=== PATIENT | female | born 2000 | race Caucasian/White ===

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

== ENCOUNTER 2018-05-29 15:57 | Emergency (ER) | payer BC ==
[2018-05-29 16:47] VITALS: BP 130/78
--- NOTE | 2018-05-29 17:06 | UC ---
Complaint Female HPI - HPI Summary HPI Summary: Patient states that she had unprotected sex this past Sunday. She states that she had been drinking at the time. She states that she may have accidentally left tampon in since then but she is not sure. She reports having a clear that she's smelling discharge and some low backache. She denies pelvic pain, fever and chills as well as nausea vomiting diarrhea and dysuria. She denies any prior history of STD. Patient does get annual routine pelvic exams. - History Of Current Complaint Chief Complaint: UCGU Stated Complaint: PERSONAL Time Seen by Provider: 05/29/18 16:45 Hx Obtained From: Patient Hx Last Menstrual Period: 05/25/18 Pain Intensity: 2 Aggravating Factor(s): Nothing Alleviating Factor(s): Nothing - Allergies/Home Medications Allergies/Adverse Reactions: Allergies Allergy/AdvReac Type Severity Reaction Status Date / Time No Known Allergies Allergy Verified 05/29/18 16:41 Home Medications: Home Medications Aviane Control Pill 1 tab PO DAILY 05/29/18 [History] PMH/Surg Hx/FS Hx/Imm Hx Previously Healthy: Yes - Surgical History Surgical History: None - Family History Known Family History: Positive: None Negative: Hypertension - Social History Occupation: Student Lives: Dormitory/Roommates Alcohol Use: Occasionally Substance Use Type: None Smoking Status (MU): Never Smoked Tobacco - Immunization History Vaccination Up to Date: Yes Review of Systems Constitutional: Negative Skin: Negative Eyes: Negative ENT: Negative Respiratory: Negative Cardiovascular: Negative Gastrointestinal: Negative Genitourinary: Vaginal/Penile Discharge Motor: Negative Neurovascular: Negative Musculoskeletal: Negative Neurological: Negative Psychological: Negative Is Patient Immunocompromised?: No All Other Systems Reviewed And Are Negative: Yes Physical Exam Triage Information Reviewed: Yes Appearance: Well-Appearing Vital Signs: Initial Vital Signs Temp 99.1 F 05/29/18 16:44 Pulse 86 05/29/18 16:44 Resp 16 05/29/18 16:44 BP 130/78 05/29/18 16:44 Pulse Ox 100 05/29/18 16:44 Eyes: Positive: Conjunctiva Clear ENT: Positive: Pharynx normal, TMs normal. Negative: Nasal congestion, Nasal drainage Neck: Positive: Supple, Nontender, No Lymphadenopathy Respiratory: Positive: Lungs clear, Normal breath sounds Cardiovascular: Positive: RRR, No Murmur Abdomen Description: Positive: Nontender, No Organomegaly, Soft. Negative: CVA Tenderness (R), CVA Tenderness (L), Distended, Guarding Bowel Sounds: Positive: Present Pelvic Exam: Positive: Other - External genitals without lesions or discharge. Patient does have a fishy odor. Upon inserting the speculum tampon is noted and removed easily. The os is closed and there is no discharge. Cultures were obtained. There was no cervical motion tenderness or adnexal or uterine tenderness on bimanual exam. Musculoskeletal: Positive: ROM Intact Neurological: Positive: Alert Psychological: Positive: Age Appropriate Behavior Skin Exam: Normal Diagnostics - Laboratory Diagnostic Studies Completed/Ordered: Pelvic cultures are pending Complaint Female Dx - Course Course Of Treatment: Given the physical exam, patient being treated presumptively for BV with Flagyl. No concern for TSS, PID or acute abdomen. - Differential Dx/Diagnosis Provider Diagnoses: Vaginal foreign body removed(tampon) Discharge - Sign-Out/Discharge Documenting (check all that apply): Patient Departure All imaging exams completed and their final reports reviewed: No Studies - Discharge Plan Condition: Stable Disposition: HOME Prescriptions: metroNIDAZOLE [Flagyl] 500 mg PO BID 7 Days #14 tablet Patient Education Materials: Vaginitis (ED), Vaginal Foreign Body (ED) Referrals: [facility] [Outside] - 7 Days - Billing Disposition and Condition Condition: STABLE Disposition: Home
== END 2018-05-29 17:27 | disposition home or self-care (01) ==
LOC: UCCORT 15:57
DX: T19.2XXA Foreign body in vulva and vagina, initial encounter (principal); M54.5 Low back pain; X58.XXXA Exposure to other specified factors, initial encounter; Y92.9 Unspecified place or not applicable
CPT/HCPCS: 87480; 87491; 87510; 87591; 87661; 99212; G0463